=== PATIENT | female | born 1940 | race Caucasian/White ===

== ENCOUNTER 2019-10-11 12:13 | Emergency (ER) | payer BC, MEDICARE ==
[2019-10-11] MEDS ORDERED: Lidocaine 1% with EPINEPHrine 1:100,000 50 ML MDV SUBCUT STA (12:45)
--- NOTE | 2019-10-11 13:07 | EDM.PDOC ---
ED HPI GENERAL MEDICAL PROBLEM - General Chief Complaint: ENT Problem Stated Complaint: BLOODY NOSE Time Seen by Provider: 10/11/19 12:45 Source of Information: Reports: Patient History Limitations: Reports: No Limitations - History of Present Illness INITIAL COMMENTS - FREE TEXT/NARRATIVE: Zoila is a 79 year old female, presents to the ED today with epistaxis. Patient reports that she has sustained three episodes of nose bleeds this week, last one this morning, lasted for 2.5 hours, reports significant bleeding. Denies hx of this in the past, denies trauma. Patient arrives here with no current bleeding. Patient denies feeling sob or lightheaded. Patient denies any headache, visual changes, or HTN. Patient denies any other complaints today. Patient is not on any blood thinners. - Related Data Allergies Allergy/AdvReac Type Severity Reaction Status Date / Time ampicillin Allergy Rash Verified 10/11/19 12:29 Sulfa (Sulfonamide Allergy Rash Verified 10/11/19 12:29 Antibiotics) Home Meds: Home Meds Metoprolol Tartrate 25 mg PO BID 10/11/19 [History] Simvastatin 40 mg PO BEDTIME 10/11/19 [History] amLODIPine [Norvasc] 10 mg PO DAILY 10/11/19 [History] lisinopriL [Lisinopril] 40 mg PO DAILY 10/11/19 [History] metFORMIN [Glucophage XR] 500 mg PO TID 10/11/19 [History] traZODone HCl [Trazodone HCl] 50 mg PO BEDTIME 10/11/19 [History] Past Medical History Cardiovascular History: Reports: High Cholesterol, Hypertension 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 ED EXAM, ENT - Physical Exam Exam: See Below Exam Limited By: No Limitations General Appearance: Alert, WD/WN, No Apparent Distress Nose: Normal Inspection, Other (No source of bleeding identified on exam). No: Active Bleeding Mouth/Throat: Normal Inspection Head: Atraumatic Neck: Normal Inspection Respiratory/Chest: No Respiratory Distress Cardiovascular: Regular Rate, Rhythm Back: Normal Inspection Extremities: Normal Inspection Neurological: Alert, Oriented, CN II-XII Intact Psychiatric: Normal Affect Skin: Warm, Dry, Intact Lymphatic: No Adenopathy ED ENT PROCEDURES - Epistaxis Procedure Indication: Epistaxis Recent anticoagulants/antiplatlets: No Uncontrolled HTN: No Recent septal/nasal surgery: No Site of bleeding: Right Nare Clearing of clots: Patient Blew Nose Topical Meds: Other (lidocaine) Anterior Packing: Inflatable Nasal Tampon Local anesthesia - Lidocaine (Xylocaine): 1% with EPI Course - Vital Signs Last Recorded V/S: Last Vital Signs Temp 35.3 C L 10/11/19 12:32 Pulse 77 10/11/19 12:32 Resp 16 10/11/19 12:32 BP 154/62 H 10/11/19 12:32 Pulse Ox 99 10/11/19 12:32 Zoila is a very pleasant 79 year old female who presents to the ED today with c/o nose bleed. Please refer to HPI and focused exam. Patient arrives here alert and oriented, Hemodynamically stable. Patient arrives with no current bleeding. I discussed with patient given the significant episodes this week in light of the amount of bleeding she reports we could try to leave the nose alone and use Afrin/Bacitracin or we could insert a nasal packing to allow for healing and ensure no further bleeding which patient elected to do. 5.5 nasal pacing placed in right nare without difficulty after being soaked in sterile water. Balloon injected with 5 ml's of air, patient tolerated well. No bleeding. Will have patient return on Monday for removal, sooner if complications arise. Patient started on Keflex for infection prophylaxis, she and her are agreeable to plan of care and patient was discharged in stable condition. - Orders/Labs/Meds Meds: Medications Discontinued Medications Generic Name Dose Route Start Last Admin Trade Name Shy PRN Reason Stop Dose Admin Lidocaine/Epinephrine 5 ml 10/11/19 12:45 10/11/19 13:00 Xylocaine 1% With Epinephrine 1:100,000 SUBCUT 10/11/19 12:46 5 ml NOW STA Administration Departure - Departure Time of Disposition: 13:30 Disposition: Home, Self-Care 01 Condition: Good Clinical Impression: Epistaxis - Discharge Information Instructions: Nosebleed, Adult Referrals: PCP,None [Primary Care Provider] - Forms: ED Department Discharge Additional Instructions: Return on Monday here for packing removal. Start Keflex today and take as directed. Return here with any worsening bleeding or other concerns. Tylenol as needed for discomfort. Avoid Ibuprofen or Naproxen. If you take a baby aspirin daily that is fine to continue. Avoid blowing your nose, lifting anything more than 10 pounds or significant straining for the next few days. Sepsis Event Note (ED) - Evaluation Sepsis Screening Result: No Definite Risk - Focused Exam Vital Signs: Vital Signs Temp Pulse Resp BP Pulse Ox 10/11/19 12:32 35.3 C L 77 16 154/62 H 99 10/11/19 12:29 35.3 C L 77 16 154/62 H 99
== END 2019-10-11 13:18 | disposition home or self-care (01) ==
LOC: JP.ED 12:13
DX: R04.0 Epistaxis (principal); E78.00 Pure hypercholesterolemia, unspecified; I10 Essential (primary) hypertension; E11.9 Type 2 diabetes mellitus without complications; Z79.84 Long term (current) use of oral hypoglycemic drugs; Z88.1 Allergy status to other antibiotic agents; Z88.2 Allergy status to sulfonamides; Z79.899 Other long term (current) drug therapy
CPT/HCPCS: 30901; 30903; 99282; 99283-25

== ENCOUNTER 2019-10-14 12:01 | Emergency (ER) | payer MEDICARE ==
--- NOTE | 2019-10-14 13:02 | EDM.PDOC ---
ED HPI GENERAL MEDICAL PROBLEM - General Chief Complaint: ENT Problem Stated Complaint: REMOVAL OF NOSE TUBE Time Seen by Provider: 10/14/19 12:52 Source of Information: Reports: Patient, Family, Old Records, RN Notes Reviewed History Limitations: Reports: No Limitations - History of Present Illness INITIAL COMMENTS - FREE TEXT/NARRATIVE: 79-year-old female presents emergency department today for nasal balloon removal, she has no further bleeding since placement reports no complications - Related Data Allergies Allergy/AdvReac Type Severity Reaction Status Date / Time ampicillin Allergy Rash Verified 10/11/19 12:29 Sulfa (Sulfonamide Allergy Rash Verified 10/11/19 12:29 Antibiotics) Home Meds: Home Meds Metoprolol Tartrate 25 mg PO BID 10/11/19 [History] Simvastatin 40 mg PO BEDTIME 10/11/19 [History] amLODIPine [Norvasc] 10 mg PO DAILY 10/11/19 [History] lisinopriL [Lisinopril] 40 mg PO DAILY 10/11/19 [History] metFORMIN [Glucophage XR] 500 mg PO TID 10/11/19 [History] traZODone HCl [Trazodone HCl] 50 mg PO BEDTIME 10/11/19 [History] Past Medical History Cardiovascular History: Reports: High Cholesterol, Hypertension 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: Endocrine/Metabolic History: Reports: Diabetes, Type II - Infectious Disease History Infectious Disease History: Reports: Chicken Pox, Measles, Mumps - Past Surgical History Musculoskeletal Surgical History: Reports: Hip Replacement Social & Family History - Tobacco Use Smoking Status *Q: Never Smoker - Caffeine Use Caffeine Use: Reports: None ED ROS ENT - Review of Systems Review Of Systems: See Below Constitutional: Reports: No Symptoms HEENT: Reports: No Symptoms ED EXAM, ENT - Physical Exam Exam: See Below Text/Narrative:: Air is evacuated from the balloon balloon is removed without difficulty no active bleeding Exam Limited By: No Limitations General Appearance: Alert, WD/WN, No Apparent Distress Nose: Normal Inspection, Normal Mucousa, No Blood Course - Vital Signs Last Recorded V/S: Last Vital Signs Temp 97.6 F 10/14/19 12:30 Pulse 75 10/14/19 12:30 Resp 16 10/14/19 12:30 BP 147/62 H 10/14/19 12:30 Pulse Ox 95 10/14/19 12:30 Departure - Departure Time of Disposition: 13:33 Disposition: Home, Self-Care 01 Condition: Fair Clinical Impression: Encounter for removal of nasal packing - Discharge Information Referrals: PCP,None [Primary Care Provider] - Forms: ED Department Discharge Additional Instructions: Recommend follow-up with ear nose and throat for further evaluation Sepsis Event Note (ED) - Evaluation Sepsis Screening Result: No Definite Risk - Focused Exam Vital Signs: Vital Signs Temp Pulse Resp BP Pulse Ox 10/14/19 12:30 97.6 F 75 16 147/62 H 95 10/14/19 12:28 97.6 F 75 16 147/62 H 95 - Assessment/Plan Plan: Assessment Acuity = acute Site and laterality = nasal packing removal Etiology = epistaxis Manifestations = none Location of injury = Home Lab values = none Plan Follow-up primary care as needed This note was dictated using [employer] voice recognition software please call with any questions on syntax or grammar.
== END 2019-10-14 13:53 | disposition home or self-care (01) ==
LOC: JP.ED 12:01
DX: Z48.00 Encounter for change or removal of nonsurgical wound dressing (principal); I10 Essential (primary) hypertension; E11.9 Type 2 diabetes mellitus without complications; E78.00 Pure hypercholesterolemia, unspecified; Z88.1 Allergy status to other antibiotic agents; Z88.2 Allergy status to sulfonamides; Z79.899 Other long term (current) drug therapy; Z79.84 Long term (current) use of oral hypoglycemic drugs
CPT/HCPCS: 99282